=== PATIENT | male | born 1960 | race Caucasian/White ===

== ENCOUNTER 2018-03-05 10:47 | Observation (INO) ==
--- NOTE | 2018-03-05 11:21 | ED ---
HPI General Chief complaint: Weakness Stated complaint: chest pain Time Seen by Provider: 03/05/18 11:00 Source: patient Mode of arrival: ambulatory Limitations: no limitations History of Present Illness HPI Narrative: 58-year-old male with PMH of gout presents the ED for evaluation of episodic weakness with blurred vision and double vision. He endorses accompanying mild frontal headache, now resolved. Onset around 720 this morning. Patient states that he took his blood pressure and it was elevated, diastolic 100. He then went to the urgent care was found to be bradycardic with heart rate of 47. He endorses a heavy sensation in his chest at that time, now resolved. On presentation the patient denies headache, dizziness, blurred vision, chest pain, palpitations, shortness of breath, abdominal pain, nausea, vomiting, weakness of the extremities, difficulties with word finding. He states that his heart rate is regularly 60 and below. However, he states that 47 is exceptionally low for him. He is a lifelong non-smoker. He states that he is an avid runner who has run several marathons and half marathons. He endorses history of dysrhythmias in his brother at age 60 and pacemaker implantation in his father in his 90s. States that he just had his yearly checkup. He states that "everything was normal except my cholesterol was mildly elevated." He denies illicit drug use. He endorses occasional alcohol use. He is followed by Dr. Guillen. Related Data Home Medications Medication Instructions Recorded Confirmed allopurinol 100 mg PO DAILY 01/10/18 03/05/18 ascorbic acid (vitamin C) [Vitamin 1,000 mg PO DAILY 01/10/18 03/05/18 C] Allergies Allergy/AdvReac Type Severity Reaction Status Date / Time Tetracyclines Allergy Severe unknown Verified 03/05/18 10:52 Review of Systems ROS: all other systems reviewed are negative FOR[facility]LY [facility] Medical History Medical History Arthritis (Acute) Fatty tumor (Acute) Gout (Acute) Right inguinal hernia (Acute) Seasonal asthma (Acute) Social History Social History Substance History: No History of Abuse Second Hand Smoke Exposure: No Smoking Status: Never smoker Tobacco Type: Cigarettes How Often Do You Have a Drink Containing Alcohol: 2 to 4 times a month Recent Travel in [facility] within the Last 8 Weeks: No Recent Out of Country Travel within the Last 8 Weeks: No Immunization History Tetanus Immunization: >5 Years Exam Narrative Exam Narrative: GENERAL: Well-nourished, well-developed white male in no acute distress. SKIN: Focused skin assessment warm/dry. Lipoma of the right shoulder. HEAD: Atraumatic. Normocephalic. EYES: Pupils equal and round. No scleral icterus. No injection or drainage. ENT: No nasal bleeding or discharge. Mucous membranes pink and moist. NECK: Trachea midline. No JVD. CARDIOVASCULAR: Regular rate and rhythm. No murmur appreciated. RESPIRATORY: No accessory muscle use. Clear to auscultation. Breath sounds equal bilaterally. GASTROINTESTINAL: Abdomen soft, non-tender, nondistended. Hepatic and splenic margins not palpable. MUSCULOSKELETAL: No obvious deformities. No clubbing. No cyanosis. No edema. NEUROLOGICAL: Awake and alert. No obvious cranial nerve deficits. Motor grossly within normal limits. Normal speech. PSYCHIATRIC: Appropriate mood and affect; insight and judgment normal. Course Initial Documented Vital Signs Temperature 97.5 F L 03/05/18 10:49 Pulse Rate 55 L 03/05/18 10:49 Respiratory Rate 18 03/05/18 10:49 Blood Pressure 135/68 03/05/18 10:49 Pulse Oximetry 100 03/05/18 10:49 Last Documented Vital Signs Temperature 97.5 F L 03/05/18 10:49 Pulse Rate 53 L 03/05/18 14:11 Respiratory Rate 23 03/05/18 14:11 Blood Pressure 117/78 03/05/18 14:11 Pulse Oximetry 100 03/05/18 14:11 Medical Decision Making CARLOS Attestation CARLOS supervised visit: Yes Attestation: I, Dr. salcedo have reviewed the advance practice practitioner's documentation and am in agreement, met with the patient face to face, made the diagnosis, and the medical decision making was done by me. *My assessment and Findings: 58-year-old male presents with feeling of chest pressure which is now resolved. He went to an urgent care and was referred here for his chest pain. Initial cardiac workup is negative. Agrees to chest pain center observation. His heart rate when he was here before for a routine inguinal repair was in the 40s. He is a marathon participant and this is likely what his heart rate runs between the 40s and 50s. MDM Narrative Medical decision making narrative: 58-year-old male with PMH of gout presents the ED for evaluation of episodic weakness with blurred vision and double vision associated awith elevated diastolic BP, now resolved. He also complains of chest "heaviness" today, now resolved.He is a lifelong non-smoker. He states that he is an avid runner who has run several marathons and half marathons. He endorses history of dysrhythmias in his brother at age 60 and pacemaker implantation in his father in his 90s. States that he just had his yearly checkup. He states that "everything was normal except my cholesterol was mildly elevated." He is followed by Dr. Guillen. Heart rate 55, BP 155/ 89. Physical exams unremarkable. Initial lab work without acute findings. Patient's agreeable to evaluation in the chest pain center. Please see their notes for disposition. Medical Screen Exam Complete: Yes Emergency Medical Condition: Yes Differential Diagnosis Differential Diagnosis: Hypertensive urgency versus hypertension versus dysrhythmia versus ICH versus ACS versus metabolic derangement versus other Lab Data Result diagrams: 03/05/18 11:23 03/05/18 11:23 Lab Results 03/05/18 03/05/18 03/05/18 Range/Units 11:23 11:23 11:41 WBC 6.7 (4.0-11.0) th/mm3 RBC 5.02 (4.50-5.90) mil/mm3 Hgb 14.3 (13.0-17.0) gm/dL Hct 42.8 (39.0-51.0) % MCV 85.2 (80.0-100.0) fL MCH 28.4 (27.0-34.0) pg MCHC 33.3 (32.0-36.0) % RDW 13.8 (11.6-17.2) % Plt Count 182 (150-450) th/mm3 MPV 9.4 (7.0-11.0) fL Neut % (Auto) 56.4 (16.0-70.0) % Lymph % (Auto) 34.3 (9.0-44.0) % [place] % (Auto) 7.3 (0.0-8.0) % Eos % (Auto) 1.6 (0.0-4.0) % Baso % (Auto) 0.4 (0.0-2.0) % Neut # (Auto) 3.8 (1.8-7.7) th/mm3 Lymph # (Auto) 2.3 (1.0-4.8) th/mm3 [place] # (Auto) 0.5 (0.0-0.9) th/mm3 Eos # (Auto) 0.1 (0.0-0.4) th/mm3 Baso # (Auto) 0.0 (0.0-0.2) th/mm3 WBC Differential . Differential Comment Auto diff final Sodium 140 (136-145) meq/L Potassium 4.3 (3.5-5.1) meq/L Chloride 106 (98-107) meq/L Carbon Dioxide 28.7 (21.0-32.0) meq/L Anion Gap 5 (5-15) meq/L BUN 14 (7-18) mg/dL Creatinine 1.03 (0.60-1.30) mg/dL Estimated GFR 75 L (>89) mL/min Random Glucose 93 (74-106) mg/dL Calcium 8.6 (8.5-10.1) mg/dL Magnesium 2.2 (1.5-2.5) mg/dL Total Bilirubin 0.5 (0.2-1.0) mg/dL AST 20 (15-37) U/L ALT 36 (12-78) U/L Alkaline Phosphatase 55 (45-117) U/L Troponin I Less than 0.02 L (0.02-0.05) ng/mL Total Protein 7.3 (6.4-8.2) g/dL Albumin 4.1 (3.4-5.0) g/dL Urine Color Yellow (Yellw/Straw) Urine Clarity Clear (Clear) Urine pH 6.0 (5.0-8.5) Ur Specific [place] 1.009 (1.002-1.035) Urine Protein Negative (Neg-Trace) mg/dL Urine Glucose (UA) Negative (Negative) mg/dL Urine Ketones Negative (Negative) mg/dL Urine Occult Blood Negative (Negative) Urine Nitrate Negative (Negative) Urine Bilirubin Negative (Negative) Urine Urobilinogen Less than 2 (Less than 2) mg/dL Ur Leukocyte Esterase Negative (Negative) Urine Mucus Few H (Occasional) /lpf Micro UA Comment Culture not ind Ur Microscopic Review Not Reportable Urine Culture Comments Culture not ind Imaging Data Radiologist's impression: Head CT 03/05/18 11:15 CONCLUSION: No acute intracranial abnormality is identified. . Discharge Plan Discharge Disposition Patient Disposition: ED Admit(ED Internal Use Only) Discharge Order Discharge Orders: ED Use Only Admit Order (Routine); Ordered 03/05/18 Ordered By: Shanelle Sheppard Physicians Team ED Provider: Nevaeh Salcedo ED Midlevel Provider: Shanelle Sheppard Primary Care Provider: Fito Guillen Attending Provider: Daphne Madrigal Status ED Status: Admitted Observation Patient
[2018-03-05 12:02] LABS: Baso % (Auto) 0.4 % (0.0-2.0); Eos # (Auto) 0.1 th/mm3 (0.0-0.4); Eos % (Auto) 1.6 % (0.0-4.0); Hematocrit 42.8 % (39.0-51.0); Hemoglobin 14.3 gm/dL (13.0-17.0); Lymph # (Auto) 2.3 th/mm3 (1.0-4.8); Lymph % (Auto) 34.3 % (9.0-44.0); Mean Corpuscular HGB Conc 33.3 % (32.0-36.0); Mean Corpuscular Hemoglobin 28.4 pg (27.0-34.0); Mean Corpuscular Volume 85.2 fL (80.0-100.0); Mean Platelet Volume 9.4 fL (7.0-11.0); Mono # (Auto) 0.5 th/mm3 (0.0-0.9); Mono % (Auto) 7.3 % (0.0-8.0); Neut # (Auto) 3.8 th/mm3 (1.8-7.7); Neut % (Auto) 56.4 % (16.0-70.0); Platelet Count 182 th/mm3 (150-450); Red Blood Count 5.02 mil/mm3 (4.50-5.90); Red Cell Distribution Width 13.8 % (11.6-17.2); White Blood Count 6.7 th/mm3 (4.0-11.0)
[2018-03-05 12:26] LABS: Alanine Aminotransferase 36 U/L (12-78); Albumin 4.1 g/dL (3.4-5.0); Anion Gap 5 meq/L (5-15); Aspartate Aminotransferase 20 U/L (15-37); Blood Urea Nitrogen 14 mg/dL (7-18); Calcium 8.6 mg/dL (8.5-10.1); Carbon Dioxide 28.7 meq/L (21.0-32.0); Chloride 106 meq/L (98-107); Glomerular Filtration Rate 75 mL/min (>89); Glucose,Random 93 mg/dL (74-106); Magnesium 2.2 mg/dL (1.5-2.5); Potassium 4.3 meq/L (3.5-5.1); Sodium 140 meq/L (136-145)
[2018-03-05 12:26] LABS: Bilirubin,Urine Negative (Negative); Clarity,Urine Clear (Clear); Color,Urine Yellow (Yellw/Straw); Glucose,Urine (UA) Negative (Negative); Leukocyte Esterase,Urine Negative (Negative); Mucus,Urine Few /lpf (Occasional); Nitrite,Urine Negative (Negative); Specific Gravity,Urine 1.009 (1.002-1.035)
[2018-03-05 12:30] LABS: Alkaline Phosphatase 55 U/L (45-117); Total Protein 7.3 g/dL (6.4-8.2)
--- NOTE | 2018-03-05 13:50 | CT ---
EXAM DATE: 03/05/2018 1:18 PM EST AGE/SEX: 58 years / Male INDICATIONS: Blurred vision elevated CLINICAL DATA: This is the patient's initial encounter. Patient reports that signs and symptoms have been present for 1 day and indicates a pain score of 0/10. MEDICAL/SURGICAL HISTORY: Arthritis. None. RADIATION DOSE: 39.91 CTDI (mGy) COMPARISON: No prior exams available for comparison. TECHNIQUE: CT of the head without contrast. Using automated exposure control and adjustment of the mA and/or kV according to patient size, radiation dose was kept as low as reasonably achievable to ob tain optimal diagnostic quality images. DICOM format image data is available electronically for revi ew and comparison. FINDINGS: Cerebrum: The ventricles are normal. No midline shift, mass lesion, hemorrhage or acute infarction. No extraaxial fluid collections are seen. Posterior Fossa: The cerebellum and brainstem demonstrate no acute abnormality. The 4th ventricle is midline. The cerebellopontine angle is within normal limits. Extracranial: The visualized sinuses are clear. The globes and intraconal structures are within norm al limits. Skull: The calvaria is intact. No skull fracture. CONCLUSION: No acute intracranial abnormality is identified. . Electronically signed by: Reza Curiel MD 03/05/2018 1:49 PM EST
--- NOTE | 2018-03-05 15:37 | XR ---
EXAM DATE: 03/05/2018 3:13 PM EST AGE/SEX: 58 years / Male INDICATIONS: Chest pressure and tightness, blurry vision CLINICAL DATA: This is the patient's initial encounter. Patient reports that signs and symptoms have been present for 1 day and indicates a pain score of 0/10. MEDICAL/SURGICAL HISTORY: Asthma. None. COMPARISON: No prior exams available for comparison. FINDINGS: A single AP view of the chest demonstrates the lungs to be symmetrically aerated without evidence of mass, infiltrate or effusion. The cardiomediastinal contours are unremarkable. Osseous structures a re intact. CONCLUSION: 1. No acute cardiopulmonary disease. Electronically signed by: Nathan Sequeira MD 03/05/2018 3:36 PM EST
--- NOTE | 2018-03-05 15:54 | P.HPCA ---
History of Present Illness Primary Care Physician: Fito Guillen MD Chief Complaint: Chest pain History of Present Illness: This is a 58-year-old male with recently diagnosed of hyperlipidemia that presents to ED with complaint of blurred vision, lightheadedness, and bradycardia. 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 He was having no headache. No other symptoms. Then while at school he began to feel lightheaded. He is discussed this with his principal who advised him to go to the school nurse and have his blood pressure checked. Patient states his blood pressure is always 120 or lower and 80 or lower but when the school nurse checked it was 180/80 and rechecked a few minutes later was still relatively the same. At that point it was decided he should go to an urgent care. Still had no headache. He went to the urgent care. Had an EKG and was told that his heart rate was bradycardic. States his symptoms lasted about 2 hours. States he probably knew that his heart rate ran 60 and a little bit lower at baseline but cannot recall ever being at that rate. Denied having chest pain or any type of chest discomfort but admits to feeling very anxious when he heard that. He was told to go to the emergency department for further evaluation. States that he is a an avid runner. Had inguinal hernia repair December and was just recently cleared to go back to regular activity. He ran 6 miles on Sunday and 7 miles on Sunday. Did not run yesterday. He did not run with his friend this morning stating he did not feel right. However when he ran over the weekend he was fine and had no visual changes, lightheadedness, headache. Had no chest pain. Really does not know his heart rate was. States he does not really monitor his heart rate when he is running. Cannot recall any recent cardiac evaluations. Had a physical within the last few weeks. Went back for laboratory follow-up and was told that his total cholesterol was a little bit elevated which would be the first time it is ever been elevated. He states his PCP told him that they would recheck in 6 months after following a better diet and to see if his lab normalized. Currently feeling fine. Recently diagnosed with hyperlipidemia but trying diet control. Denies hypertension, diabetes, and known CAD. States his father had a stent at age 72 and also had a pacemaker. Lifetime non-smoker. Has on average 3-4 beers a month. Denies illicit drugs. He is a schoolteacher. Recent inguinal hernia repair December 2017. States he was cleared to go back to regular activity. - Diagnosis (1) Chest pain (2) Bradycardia (3) Hyperlipidemia Review of Systems General: Patient denies fevers, chills, and recent travel. HEENT: Patient denies headache, sore throat, difficulty swallowing. Cardiovascular: Has the chest discomfort as mentioned above. Denies sensation of heart beating rapidly or irregularly. No syncope. Denies diaphoresis. Respiratory: Denies shortness of breath or inspirational chest discomfort. Denies coughing wheezing or hemoptysis. GI: He was a little nauseous. Patient denies vomiting, diarrhea, abdominal pain , bloody stools. Musculoskeletal: Patient denies joint pain or edema. Denies calf pain or edema. Neurovascular: Patient denies numbness, tingling, weakness in extremities. Denies headache. Endocrine: Denies polyuria and polydipsia. Hematologic: Denies easy bruising. Skin: Denies rash or itching. PMF - History History Provided By: Patient, Family Member - Medical History Medical History: Medical History (Last Reviewed 03/05/18 @ 11:30 by JADEN Barron) Arthritis Fatty tumor Gout Right inguinal hernia Seasonal asthma - Tobacco History Second Hand Smoke Exposure: No Smoking Status: Never smoker Tobacco Type: Cigarettes - Alcohol History How Often Do You Have a Drink Containing Alcohol: 2 to 4 times a month - Substance Use History Substance History: No History of Abuse - Travel History Recent Travel in the [place] Within the Last 8 Weeks: No Recent Travel Out of the Country Within the Last 8 Weeks: No - Immunization History Tetanus Immunization: >5 Years Medications and Allergies Active Medications: Active Medications Acetaminophen (Tylenol) 500 mg PO Q6H PRN PRN Reason: pain scale 1-5 Hydrocodone Bitart/Acetaminophen ([place] 7.5/325) 1 tab PO Q6H PRN PRN Reason: pain scale 6-10 Albuterol (Duoneb Neb (Prn)) 1 ampul NEB Q4HR NEB PRN PRN Reason: SHORTNESS OF BREATH/WHEEZING Aspirin (Aspirin) 325 mg PO DAILY REYES Clonidine HCl (Catapres) 0.1 mg PO Q6H PRN PRN Reason: SBP >165 OR DBP > 110 Ondansetron HCl (Zofran Inj) 4 mg IV.PUSH Q6H PRN PRN Reason: NAUSEA Pantoprazole Sodium (Protonix) 40 mg PO DAILY REYES Sodium Chloride (Ns Flush) 2 ml IV.FLUSH BID REYES Sodium Chloride (Ns Flush) 2 ml IV.FLUSH PRN PRN PRN Reason: FLUSH AFTER USING IV ACCESS Allergies Allergy/AdvReac Type Severity Reaction Status Date / Time Tetracyclines Allergy Severe unknown Verified 03/05/18 10:52 Home Medications Medication Instructions Recorded Confirmed Type allopurinol 100 mg PO DAILY 01/10/18 03/05/18 History ascorbic acid (vitamin C) [Vitamin 1,000 mg PO DAILY 01/10/18 03/05/18 History C] Exam Vital signs: Vital Signs 03/05/18 10:49 03/05/18 11:16 03/05/18 11:18 Temperature 97.5 F L Pulse Rate 55 L 55 L Respiratory Rate 18 21 Blood Pressure 135/68 129/101 H Pulse Oximetry 100 100 100 03/05/18 11:39 03/05/18 14:11 Temperature Pulse Rate 59 L 53 L Respiratory Rate 23 Blood Pressure 155/89 H 117/78 Pulse Oximetry 100 Intake & Output 03/04/18 03/05/18 03/05/18 18:59 06:59 18:59 Weight 77.111 kg Narrative: GENERAL: This is a well-nourished, well-developed patient, in no apparent distress. Patient speaks in clear complete sentences. Patient is pleasant. HEENT: Head is atraumatic and normocephalic. Neck is supple without lymphadenopathy and trachea is midline. No JVD or carotid bruits. CARDIOVASCULAR: Sinus bradycardia, rate at 48 without murmurs, gallops, or rubs. RESPIRATORY: Clear to auscultation. Breath sounds equal bilaterally. No wheezes , rales, or rhonchi. Chest wall is nontender. No use of accessory muscles. GASTROINTESTINAL: Abdomen is nontender, nondistended. Abdomen soft. No obvious pulsatile mass or bruit. No CVA tenderness. Strong femoral pulses bilaterally. Normal bowel sounds in all quadrants. MUSCULOSKELETAL: Patient is moving upper and lower extremities freely. No calf tenderness or edema, no Homans sign. Strong pulses in upper and lower extremities. NEUROLOGICAL: Patient is alert and oriented. Cranial nerves 2-12 are grossly intact. No focal deficits and speech is clear. SKIN: No rash and turgor is normal. Results 03/05/18 11:23 03/05/18 11:23 Cardiac Enzymes 03/05/18 Range/Units 11:23 AST 20 (15-37) U/L Troponin I Less than 0.02 L (0.02-0.05) ng/mL CBC 03/05/18 Range/Units 11:23 WBC 6.7 (4.0-11.0) th/mm3 RBC 5.02 (4.50-5.90) mil/mm3 Hgb 14.3 (13.0-17.0) gm/dL Hct 42.8 (39.0-51.0) % Plt Count 182 (150-450) th/mm3 Neut # (Auto) 3.8 (1.8-7.7) th/mm3 Lymph # (Auto) 2.3 (1.0-4.8) th/mm3 [place] # (Auto) 0.5 (0.0-0.9) th/mm3 Eos # (Auto) 0.1 (0.0-0.4) th/mm3 Baso # (Auto) 0.0 (0.0-0.2) th/mm3 Comprehensive Metabolic Panel 03/05/18 Range/Units 11:23 Sodium 140 (136-145) meq/L Potassium 4.3 (3.5-5.1) meq/L Chloride 106 (98-107) meq/L Carbon Dioxide 28.7 (21.0-32.0) meq/L BUN 14 (7-18) mg/dL Creatinine 1.03 (0.60-1.30) mg/dL Calcium 8.6 (8.5-10.1) mg/dL AST 20 (15-37) U/L ALT 36 (12-78) U/L Alkaline Phosphatase 55 (45-117) U/L Total Protein 7.3 (6.4-8.2) g/dL Albumin 4.1 (3.4-5.0) g/dL Intake and Output 03/05/18 03/05/18 03/05/18 06:59 14:59 22:59 Other: Weight 77.111 kg Patient Weight 03/06/18 06:59 Weight 77.111 kg - Imaging and Cardiology Imaging: Impressions Head CT 03/05/18 11:15 CONCLUSION: No acute intracranial abnormality is identified. . Chest X-Ray 03/05/18 14:30 CONCLUSION: 1. No acute cardiopulmonary disease. EKG interpretations - EKG EKG shows: bradycardia (Sinus bradycardia rate of [address] segment depressions or elevations.) Caprini VTE Risk Assessment Caprini VTE Risk Assessment: No/Low Risk (score <= 1) Caprini Risk Assessment Model: Point Value = 1 Point Value = 2 Point Value = 3 Point Value = 5 Age 41-60 Minor surgery BMI > 25 kg/m2 Swollen legs Varicose veins or History of unexplained or recurrent spontaneous Oral contraceptives or hormone replacement Sepsis (< 1 month) Serious lung disease, including pneumonia (< 1 month) Abnormal pulmonary function Acute myocardial infarction Congestive heart failure (< 1 month) History of inflammatory bowel disease Medical patient at bed rest Age 61-74 Arthroscopic surgery Major open surgery (> 45 min) Laparoscopic surgery (> 45 min) Malignancy Confined to bed (> 72 hours) Immobilizing plaster cast Central venous access Age >= 75 History of VTE Family history of VTE Factor V Leiden Prothrombin [id number] Lupus anticoagulant Anticardiolipin antibodies Elevated serum homocysteine Heparin-induced thrombocytopenia Other congenital or acquired thrombophilia Stroke (< 1 month) Elective arthroplasty Hip, pelvis, or leg fracture Acute spinal cord injury (< 1 month) Prophylaxis Regimen: Total Risk Factor Score Risk Level Prophylaxis Regimen 0-1 Low Early ambulation 2 Moderate Order ONE of the following: *Sequential Compression Device (SCD) *Heparin 5000 units SQ BID 3-4 Higher Order ONE of the following medications: *Heparin 5000 units SQ TID *Enoxaparin/Lovenox 40 mg SQ daily (WT < 150 kg, CrCl > 30 mL/min) *Enoxaparin/Lovenox 30 mg SQ daily (WT < 150 kg, CrCl > 10-29 mL/min) *Enoxaparin/Lovenox 30 mg SQ BID (WT < 150 kg, CrCl > 30 mL/min) AND/OR *Sequential Compression Device (SCD) 5 or more Highest Order ONE of the following medications: *Heparin 5000 units SQ TID (Preferred with Epidurals) *Enoxaparin/Lovenox 40 mg SQ daily (WT < 150 kg, CrCl > 30 mL/min) *Enoxaparin/Lovenox 30 mg SQ daily (WT < 150 kg, CrCl > 10-29 mL/min) *Enoxaparin/Lovenox 30 mg SQ BID (WT < 150 kg, CrCl > 30 mL/min) AND *Sequential Compression Device (SCD) Assessment and Plan - Assessment (1) Chest pain Code(s): R07.9 - Chest pain, unspecified Status: Acute (2) Bradycardia Code(s): R00.1 - Bradycardia, unspecified Status: Acute (3) Hyperlipidemia Code(s): E78.5 - Hyperlipidemia, unspecified Status: Acute - Plan Chest pain: Patient now recalls having chest discomfort. Described as a heaviness but did not last long. He will have serial cardiac enzymes and EKGs for ruling out purposes. He was evaluated by Dr. Madrigal and will undergo a Joe protocol ETT in the morning if he rules out. He should follow-up with his PCP. Return to ED for interval issues. Bradycardia: This may very well be chronic however today he became lightheaded and had blurred vision and thought it may be related to the bradycardia or at least they were concerned at the urgent care center that might be. Discussed if he had enough fluid intake, states he drinks 32 ounces of water yesterday. Patient will have serial cardiac enzymes and EKGs for ruling out purposes. Denies having chest discomfort. Will be evaluated by Dr. Madrigal and further plan will be decided at that point. He will be observed overnight while on telemetry to see if there are any arrhythmias or significant symptomatic bradycardia. Hyperlipidemia: He needs to have this followed with his physician. States he is scheduled for 6 months recheck. Patient is stable at this time. He is agreeable to this plan.
[2018-03-05] MEDS ORDERED: Acetaminophen 500 MG Tablet PO PRN (16:00)
[2018-03-05 16:01] LABS: Creatine Kinase 125 U/L (39-308)
[2018-03-05 16:07] LABS: Creatine Kinase 148 U/L (39-308)
[2018-03-05 16:29] LABS: Creatine Kinase MB 3.3 ng/mL (0.5-3.6)
[2018-03-05 18:31] LABS: Creatine Kinase 115 U/L (39-308)
--- NOTE | 2018-03-05 19:23 | ECG ---
Date Performed: 03/05/2018 Time Performed: 15:20:06 PTAGE: 58 years EKG: SINUS BRADYCARDIA MINIMAL VOLTAGE CRITERIA FOR LVH, CONSIDER NORMAL VARIANT BORDERLINE ECG PREVIOUS TRACING : 03/05/2018 11.17 Since the previous tracing, no significant change noted DOCTOR: Nathaniel Mg Interpretating Date/Time 03/05/2018 19:22:06
--- NOTE | 2018-03-05 21:19 | ECG ---
Date Performed: 03/05/2018 Time Performed: 11:17:59 PTAGE: 58 years EKG: SINUS BRADYCARDIA BORDERLINE ECG NO PREVIOUS TRACING DOCTOR: Nathaniel Mg Interpretating Date/Time 03/05/2018 21:18:41
--- NOTE | 2018-03-06 08:47 | P.PNCA ---
Subjective Interval history: No further blurred vision or dizziness. Offers no complaints. Upon entering room patient began putting on tennis shoes, stating " I am ready for stress test." Medications and Allergies Active Medications: Active Medications Acetaminophen (Tylenol) 500 mg PO Q6H PRN PRN Reason: pain scale 1-5 Hydrocodone Bitart/Acetaminophen ([place] 7.5/325) 1 tab PO Q6H PRN PRN Reason: pain scale 6-10 Albuterol (Duoneb Neb (Prn)) 1 ampul NEB Q4HR NEB PRN PRN Reason: SHORTNESS OF BREATH/WHEEZING Aspirin (Aspirin) 325 mg PO DAILY [facility] [place] Clonidine HCl (Catapres) 0.1 mg PO Q6H PRN PRN Reason: SBP >165 OR DBP > 110 Ondansetron HCl (Zofran Inj) 4 mg IV.PUSH Q6H PRN PRN Reason: NAUSEA Pantoprazole Sodium (Protonix) 40 mg PO DAILY [facility] [place] Last Admin: 03/05/18 18:15 Dose: 40 mg Sodium Chloride (Ns Flush) 2 ml IV.FLUSH BID [facility] [place] Last Admin: 03/05/18 20:58 Dose: 2 ml Sodium Chloride (Ns Flush) 2 ml IV.FLUSH PRN PRN PRN Reason: FLUSH AFTER USING IV ACCESS Allergies Allergy/AdvReac Type Severity Reaction Status Date / Time Tetracyclines Allergy Severe unknown Verified 03/05/18 10:52 Home Medications Medication Instructions Recorded Confirmed Type allopurinol 100 mg PO DAILY 01/10/18 03/05/18 History ascorbic acid (vitamin C) [Vitamin 1,000 mg PO DAILY 01/10/18 03/05/18 History C] Physical Exam Vital signs: Vital Signs 03/05/18 10:49 03/05/18 11:16 03/05/18 11:18 Temperature 97.5 F L Pulse Rate 55 L 55 L Respiratory Rate 18 21 Blood Pressure 135/68 129/101 H Pulse Oximetry 100 100 100 03/05/18 11:39 03/05/18 14:11 03/05/18 20:00 Temperature 97.5 F L Pulse Rate 59 L 53 L 54 L Respiratory Rate 23 14 Blood Pressure 155/89 H 117/78 111/67 Pulse Oximetry 100 97 03/05/18 21:10 03/06/18 00:00 03/06/18 04:00 Temperature 97.5 F L 97.5 F L Pulse Rate 57 L 52 L 58 L Respiratory Rate 16 16 Blood Pressure 122/84 127/80 Pulse Oximetry 99 100 03/06/18 08:00 Temperature 98.7 F Pulse Rate 54 L Respiratory Rate 16 Blood Pressure 123/77 Pulse Oximetry 100 Intake & Output 03/05/18 03/06/18 03/06/18 18:59 06:59 18:59 Intake Total 480 / 480 Balance 480 / 480 Weight 78.4 kg Intake: Oral 480 / 480 Other: # Voids 2 Weight On Admission 78.4 kg Narrative: male sitting in recliner watching TV in no acute distress. - Constitutional no acute distress, cooperative - Routine HEENT Exam Head: Present: normocephalic, atraumatic - Routine Respiratory Exam Present: CTA bilaterally - Routine Cardiovascular Exam Present: bradycardia. Absent: murmur, gallop, rubs Results 03/05/18 11:23 03/05/18 11:23 Cardiac Enzymes 03/05/18 03/05/18 03/05/18 Range/Units 11:23 15:20 17:55 AST 20 (15-37) U/L CK-MB (CK-2) 3.3 (0.5-3.6) ng/mL Troponin I Less than 0.02 L Less than 0.02 L Less than 0.02 L (0.02-0.05) ng/mL CBC 03/05/18 Range/Units 11:23 WBC 6.7 (4.0-11.0) th/mm3 RBC 5.02 (4.50-5.90) mil/mm3 Hgb 14.3 (13.0-17.0) gm/dL Hct 42.8 (39.0-51.0) % Plt Count 182 (150-450) th/mm3 Neut # (Auto) 3.8 (1.8-7.7) th/mm3 Lymph # (Auto) 2.3 (1.0-4.8) th/mm3 [place] # (Auto) 0.5 (0.0-0.9) th/mm3 Eos # (Auto) 0.1 (0.0-0.4) th/mm3 Baso # (Auto) 0.0 (0.0-0.2) th/mm3 Comprehensive Metabolic Panel 03/05/18 Range/Units 11:23 Sodium 140 (136-145) meq/L Potassium 4.3 (3.5-5.1) meq/L Chloride 106 (98-107) meq/L Carbon Dioxide 28.7 (21.0-32.0) meq/L BUN 14 (7-18) mg/dL Creatinine 1.03 (0.60-1.30) mg/dL Calcium 8.6 (8.5-10.1) mg/dL AST 20 (15-37) U/L ALT 36 (12-78) U/L Alkaline Phosphatase 55 (45-117) U/L Total Protein 7.3 (6.4-8.2) g/dL Albumin 4.1 (3.4-5.0) g/dL Intake and Output 03/05/18 03/06/18 03/06/18 22:59 06:59 14:59 Intake Total 480 / 480 Balance 480 / 480 Intake: Oral 480 / 480 Other: # Voids 0 2 Weight 78.4 kg Weight On Admission 78.4 kg - Imaging and Cardiology Imaging: Impressions Head CT 03/05/18 11:15 CONCLUSION: No acute intracranial abnormality is identified. . Chest X-Ray 03/05/18 14:30 CONCLUSION: 1. No acute cardiopulmonary disease. Assessment and Plan - Assessment (1) Chest pain Code(s): R07.9 - Chest pain, unspecified Status: Acute Plan: Admitted chest pain center. ACS ruled out with 3 sets of EKGs and cardiac enzymes. Monitor on telemetry overnight. Previously seen and evaluated by pharmacy messenger, Dr. Daphne Madrigal. Proceed with exercise cardiac testing this morning. If unremarkable, plans are to discharge home with follow-up with primary care provider. Verbalized understanding and agreeable to plan of care. (2) Bradycardia Code(s): R00.1 - Bradycardia, unspecified Status: Acute Plan: Likely related to long-standing avid runner. Continue to monitor. No further dizziness or blurred vision. (3) Hyperlipidemia Code(s): E78.5 - Hyperlipidemia, unspecified Status: Chronic Plan: Encouraged continuing lifestyle modifications as instructed by his primary care provider. Discussed importance of continuing lipid panel trends. - Plan Chest pain: Patient now recalls having chest discomfort. Described as a heaviness but did not last long. He will have serial cardiac enzymes and EKGs for ruling out purposes. He was evaluated by Dr. Madrigal and will undergo a Joe protocol ETT in the morning if he rules out. He should follow-up with his PCP. Return to ED for interval issues. Bradycardia: This may very well be chronic however today he became lightheaded and had blurred vision and thought it may be related to the bradycardia or at least they were concerned at the urgent care center that might be. Discussed if he had enough fluid intake, states he drinks 32 ounces of water yesterday. Patient will have serial cardiac enzymes and EKGs for ruling out purposes. Denies having chest discomfort. Will be evaluated by Dr. Madrigal and further plan will be decided at that point. He will be observed overnight while on telemetry to see if there are any arrhythmias or significant symptomatic bradycardia. Hyperlipidemia: He needs to have this followed with his physician. States he is scheduled for 6 months recheck. Patient is stable at this time. He is agreeable to this plan. (1) Chest pain Qualifiers: Chest pain type: unspecified Qualified Code(s): R07.9 - Chest pain, unspecified (3) Hyperlipidemia Qualifiers: Hyperlipidemia type: unspecified Qualified Code(s): E78.5 - Hyperlipidemia, unspecified
[2018-03-06] MEDS ORDERED: Aspirin 325 MG Tablet PO SCH (09:00)
--- NOTE | 2018-03-06 15:55 | ECG ---
Date Performed: 03/05/2018 Time Performed: 17:57:11 PTAGE: 58 years EKG: SINUS BRADYCARDIA BORDERLINE ECG PREVIOUS TRACING : 03/05/2018 15.20 Since previous tracing, no significant change noted DOCTOR: Parish Neff Interpretating Date/Time 03/06/2018 15:53:42
--- NOTE | 2018-03-06 15:57 | TR ---
Date Performed: 03/06/2018 Time Performed: 09:14:12 DOCTOR: Parish Neff DRUG LIST: CLINICAL HISTORY: REASON FOR TEST: REASON FOR ENDING: OBSERVATION: CONCLUSION: Joe protocol completed. Stopped sec to exceeding target heart rate. Maximum MB=282 Max HR Achieved=90.0% Maximum GT=778/80 Total Exercise Time=7:01. No reprod chest discomfort. No ect opy. Upsloping st segments. Normal bp response. Good exercise tolerance. Recovery quick and unremarka ble. COMMENTS: Patient exercised using the Joe protocol. No electrocardiographic changes were seen to suggest ischemia. Hemodynamic response to exercise was normal. No significant arrhythmia was prese nt.
== END 2018-03-06 11:54 | disposition home or self-care (01) ==
LOC: NEDA 10:47 → NEPC 10:47 → NEPGCP 16:00
PROVIDERS: ADMIT Internal Medicine Interventional Cardiology; ATTEND Internal Medicine Interventional Cardiology
DX: Z88.1 Allergy status to other antibiotic agents; J45.909 Unspecified asthma, uncomplicated; M10.9 Gout, unspecified; M19.90 Unspecified osteoarthritis, unspecified site; E78.5 Hyperlipidemia, unspecified; R07.9 Chest pain, unspecified; R00.1 Bradycardia, unspecified; H53.2 Diplopia; D17.21 Benign lipomatous neoplasm of skin and subcutaneous tissue of right arm; F17.210 Nicotine dependence, cigarettes, uncomplicated